=== PATIENT | male | born 1955 | race Caucasian/White ===

== ENCOUNTER → 2017-01-28 | Outpatient (CLI) | payer OTHER ==
--- NOTE | 2017-01-28 18:48 | CT ---
EXAMINATION TYPE: CT angio chest DATE OF EXAM: 01/28/2017 5:08 PM COMPARISON: Prior chest CTA February 2015 HISTORY: Ventricular tachycardia CT DLP: 523 mGycm Automated exposure control for dose reduction was used. CONTRAST: CTA scan of the thorax is performed with IV Contrast, patient injected with 100 mL of Omnipaque 350, pulmonary embolism protocol. MIP images are created and reviewed. 3D reconstructed images are creat ed on an independent workstation and reviewed. FINDINGS: LUNGS: The lungs are stable minimal nodularity again noted in the right lower lobe is unchanged. Ther e is no pleural effusion or pneumothorax seen. The tracheobronchial tree is patent. AORTA: Similar to prior exam, ascending aorta measures approximately 3.9 cm. There are coronary wolfgang ry calcifications present. Some metallic densities seen at the level of the root of the aorta. MEDIASTINUM: There is satisfactory enhancement of the pulmonary artery and its branches, there is no CT evidence for pulmonary embolism. There are no greater than 1 cm hilar or mediastinal lymph nodes. No pericardial effusion is seen. Patient is post median sternotomy. OTHER: No additional significant abnormality is seen. IMPRESSION: FINDINGS ARE SIMILAR TO PRIOR EXAM. POSTOP CHANGES, STABLE ASCENDING AORTA. NODULARITY RIGHT LOWER LO BE IS UNCHANGED.
== END | disposition home or self-care (01) ==
LOC: RADCTMAIN 16:44
PROVIDERS: ATTEND Internal Medicine Interventional Cardiology
DX: R91.8 Other nonspecific abnormal finding of lung field (principal); I47.2 Ventricular tachycardia; Z98.890 Other specified postprocedural states
CPT/HCPCS: 71275; Q9967

== ENCOUNTER → 2023-09-05 | Outpatient (CLI) | payer MEDICARE ==
--- NOTE | 2023-09-06 20:34 | MR ---
EXAMINATION TYPE: MR brain wo con DATE OF EXAM: 09/05/2023 COMPARISON: 01/07/2012 HISTORY: 68-year-old male G40.109, Partial epilepsy TECHNIQUE: Multiplanar, multisequence images of the brain and brainstem were acquired without IV con trast. Diffusion weighted imaging is performed. FINDINGS: No evidence for acute infarction, hemorrhage, mass, mass effect, midline shift, herniation, effacemen t of basal cisterns, or extra-axial fluid collection. The ventricles and sulci are age-appropriate. Dominant left vertebral artery. Major intracranial flow voids are intact. T2/FLAIR weighted sequences show moderate scattered bright signal foci in the subcortical, deep white matter, and periventricular regions of both cerebral hemispheres. There is slight asymmetric enlargement of the temporal horn of the left lateral ventricle and questio nable asymmetric volume loss at the level of the left hippocampal head, refer to coronal series 701 i mage 16. However, forniceal volume appears symmetrical. No evident so matter heterotopia. Midline structures demonstrate normal morphology. The craniocervical junction is normal. The previou sly described low-lying tonsils not appreciated on the current exam. Post contrast images demonstrate no evidence of pathologic enhancement. Dural venous sinuses are pat ent. Scattered mild mucosal thickening in moderate air cells. Globes are intact. Small amount of fluid wit hin the inferior left mastoid air cells, questionable clinical significance. IMPRESSION: 1. No acute intracranial abnormality seen. 2. There is chronic T2 bright white matter change with moderate scattered burden, slightly progressed from 2012. Probably progression in chronic small vessel ischemic disease. Hypertension and chronic migraines are also in the differential. Less likely demyelinating disease. 3. Asymmetric enlargement of the temporal horn of the left lateral ventricle. On coronal images, ther e seems to be some asymmetric volume loss to the head of the left hippocampus. Correlate for the poss ibility of mesial temporal sclerosis.
== END | disposition home or self-care (01) ==
LOC: RADMRIMAIN 11:26
PROVIDERS: ATTEND Psychiatry & Neurology Neurology
DX: G40.109 Localization-related (focal) (partial) symptomatic epilepsy and epileptic syndromes with simple partial seizures, not intractable, without status epilepticus (principal); G93.89 Other specified disorders of brain
CPT/HCPCS: 70551